=== PATIENT | female | born 1995 ===

== ENCOUNTER 2024-03-06 11:03 | Outpatient (CLI) | payer OTHER, SELFPAY ==
--- NOTE | ~2024-03-06 | US_ITS ---
EXAMINATION: US OB /maternal detail DATE: 03/06/2024 11:50 INDICATION: Routine anatomy scan. TECHNIQUE: Real-time ultrasound of the pelvis was performed. COMPARISON: None. FINDINGS: There is a single living fetus in breech presentation. The placenta is fundal and posterior, 10.5 cm from the cervix. The cervical length is 2.8 cm on transabdominal images, which is normal. hear t rate is 159 beats per minute (bpm). The amniotic fluid volume is subjectively normal. The following biometric data were obtained: Biparietal diameter (BPD): 4.8 cm; head circumference (HC): 18.5 cm; abdominal circumference (AC): 15 .3 cm; femur length (FL): 3.2 cm. These measurements are concordant. Estimated weight is 348 g +/- 52 g, which correlates with the 33rd percentile when 07/20/24 is u sed as estimated date of delivery. As single measurements, these parameters are each equal to the following estimated gestational ages: BPD: 20 weeks 4 days. HC: 20 weeks 6 days. AC: 20 weeks 4 days. FL: 20 weeks 0 days. estimated gestational age based solely on measurements from this exam is 20 weeks 4 days +/- 1 weeks 3 days. The cerebral ventricles, cerebellum, cisterna magna, nuchal fold, lip, and visualized portions of the spine are normal. The heart is normal. The diaphragm, stomach, kidneys, and bladder are normal. Ther e are two umbilical arteries to yield a 3-vessel cord. The cord insertion is normal. IMPRESSION: 1. Single living fetus in breech presentation. 2. Estimated weight is 348 g +/- 52 g, which correlates with the 33rd percentile when 07/20/24 is used as estimated date of delivery. 3. Normal anatomic survey. Reviewed, dictated and finalized at location A. IMPRESSION: 1. Single living fetus in breech presentation. 2. Estimated weight is 348 g +/- 52 g, which correlates with the 33rd pe rcentile when 07/20/24 is used as estimated date of delivery. 3. Normal anatomic survey.
== END 2024-03-06 11:04 ==
LOC: MICIMG 11:06
PROVIDERS: PCP Obstetrics & Gynecology
DX: Z33.1 Pregnant state, incidental (principal); Z3A.20 20 weeks gestation of pregnancy
CPT/HCPCS: 76805